=== PATIENT | male | born 1995 | race Two or more races ===

== ENCOUNTER → 2024-06-27 | Outpatient (CLI) | payer BC, SELFPAY ==
--- NOTE | 2024-06-27 07:30 | XR_ITS ---
Examination: CT abdomen and pelvis without contrast. Coronal 3-D reconstructions. Sagittal 2-D reconstructions. Date and time of exam:09/27/2024 0759 hours INDICATIONS: Epigastric pain beginning 5 years ago CTDI: vol (mGy): 8.11 DLP: (mGycm): 428 Technique: Axial images of the abdomen have been obtained, 3 mm slice thickness Intravenous contrast material has not been administered. Low dose protocols were performed. One or more of the following dose reduction techniques were used; automated exposure control, adjustment of the mA and/or KV according to patient size, use of iterative reconstruction technique. Findings: Diffuse fatty infiltration throughout the liver No gallstones No splenic pancreatic or adrenal mass No renal or ureteral calculi, no hydronephrosis Aorta normal size 4 mm fat-containing umbilical hernia Normal appendix No bowel obstruction No diverticulitis Intact urinary bladder No prostatomegaly The osseous structures are intact IMPRESSION: No renal or ureteral calculi, no hydronephrosis Normal appendix No bowel obstruction diverticulitis or free air
== END | disposition home or self-care (01) ==
LOC: CCTX 07:38
PROVIDERS: PCP Nurse Practitioner Family; Referring Provider Surgery; Visit Provider Surgery
DX: R10.13 Epigastric pain (principal)
CPT/HCPCS: 74176